=== PATIENT | male | born 1935 | race Caucasian/White ===

== ENCOUNTER 2022-07-02 10:42 | Emergency (ER) | payer OTHER, SELFPAY ==
[2022-07-02 10:50] VITALS: BP 156/82; PULSE 83; RESP 16; TEMP 36.8; O2SAT 95; BMI 26.5
--- NOTE | 2022-07-02 11:01 | ED_ITS ---
HPI - Extremity Injury (Lower) General Time Seen by Provider: 11:03 Date Seen: 07/02/22 Chief Complaint: Extremity Pain/Injury, Lower Stated Complaint: Leg pain/Muscle spasm Time Seen by Provider: 07/02/22 10:55 Source: patient, RN notes reviewed and old records reviewed Mode of arrival: ambulatory Limitations: no limitations History of Present Illness HPI Narrative: Moises is in the very pleasant 86-year-old gentleman having just been recently started on antihypertensive medicines in the past month who comes to the emergency room at the urging of the [facility] triage for evaluation regarding a possible DVT. Patient notes the onset of right calf pain last night associated with some mild swelling of the ankle. He states that he has not had any injury that he can recall. He has been very active and has not had any reason to be in active over the past month. He himself has no history of DVT although he has a daughter with recurrent DVT. Patient denies any recent back pain. Patient notes that he had to stay up last night and walking made his calf feel better. He describes waning and waxing pain and almost a spasm like quality to this discomfort. He has not had this happen to him in the past. I do ask him if he was experiencing spasm to the extent that his toe would point to the floor but he denies this. No recent fever chills or illness. Related Data Home Medications Medication Instructions Recorded Confirmed amlodipine 5 mg tablet 5 mg PO DAILY 07/02/22 07/02/22 losartan 50 mg tablet 50 mg PO DAILY 07/02/22 07/02/22 Allergies Allergy/AdvReac Type Severity Reaction Status Date / Time No Known Drug Allergies Allergy Verified 07/02/22 10:57 Review of Systems Status of ROS: Reports: 6 or more systems reviewed and unremarkable except as noted in History and below Narrative: Patient denies chest pain, shortness of breath, cough. Patient denies any abdominal pain, back pain. No recent falls or injury. [facility] Social History Smoking Status: Smoker, status unknown Non-prescribed substance use: denies use Exam Narrative: Exam Narrative: Patient is a very pleasant well-spoken gentleman. He is somewhat hard of hearing. Nontoxic in appearance. Heart with regular rate and rhythm and lungs are clear to auscultation in lung noyola. Moving all extremities without difficulty. He has no pain with palpation in the right calf. No significant difference in size in the calves. He does have some slight tenderness around the right ankle medial greater than lateral. Tenderness noted over the Achilles insertion which is very mild. Flexion extension fully intact. No obvious erythema. Skin changes consistent with some venous stasis. Const: Vital Signs, click to edit/add: Vital Signs - 24 hr 07/02/22 10:50 07/02/22 13:38 Temperature 98.3 F 98.3 F Pulse Rate [Right Pulse Oximeter] 83 83 Respiratory Rate 16 16 Blood Pressure [Ri ght Upper Arm] 156/82 H 156/82 H Pulse Oximetry 95 Oxygen Delivery Me thod Room Air Documenting provider has reviewed patient's vital signs: yes Course Course Hospital Course: When patient was started on his 2 medications for blood pressure he followed up 10 days ago and with received a call and was told that they were only going to continue 1 of the medications to be on the safe side. Family does not know what this means. They were unable to answer the question if this was an electrolyte or a kidney abnormality that may have showed up on the results. We will try to obtain recent records. Patient will have ultrasound of the right lower extremity as well as a chemistry panel plus magnesium. Vital Signs Vital signs: Initial Vital Signs Temperature 98.3 F 07/02/22 10:50 Temperature Source Temporal Artery Scan 07/02/22 10:50 Pulse Rate 83 07/02/22 10:50 Respiratory Rate 16 07/02/22 10:50 Blood Pressure 156/82 H 07/02/22 10:50 Blood Pressure Mean 106 07/02/22 10:50 Blood Pressure Position Sitting 07/02/22 10:50 Pulse Oximetry 95 07/02/22 10:50 Oxygen Delivery Method 07/02/22 10:50 Vital Signs Temperature 98.3 F 07/02/22 10:50 Pulse Rate 83 07/02/22 10:50 Respiratory Rate 16 07/02/22 10:50 Blood Pressure 156/82 H 07/02/22 10:50 Pulse Oximetry 95 07/02/22 10:50 Oxygen Delivery Method 07/02/22 10:50 Temperature 98.3 F 07/02/22 13:38 Pulse Rate 83 07/02/22 13:38 Respiratory Rate 16 07/02/22 13:38 Blood Pressure 156/82 H 07/02/22 13:38 Pulse Oximetry 95 07/02/22 10:50 Oxygen Delivery Method 07/02/22 10:50 MDM - Extremity Injury (Lower) MDM Narrative Medical decision making narrative: 1. Right leg pain-no evidence of DVT or lectured I abnormality leading to spasms. Patient is noted to have some slight edema on that side and an ultrasound that shows dilated vessel area around of valve popliteal fossa area. This may be leading to some venous stasis. But fortunately no evidence it is of clot. Recommend Tylenol or ibuprofen as needed for discomfort. Recommend elevating legs a few times a day. Follow-up with primary MD for ongoing symptoms. Magnesium, potassium and creatinine within normal limits. 2. Disposition-home with daughter. Return to the ER as needed. Medical Records Attestation: I reviewed the patient's medical records. Lab Data Attestation: I reviewed the patient's lab results. Labs: Lab Results 07/02/22 Range/Units 12:55 Sodium 139 (135-149) mmol/L Potassium 4.6 (3.6-5.1) mmol/L Chloride 100 (96-114) mmol/L Carbon Dioxide 30 (20-32) mmol/L BUN 16 (7-30) mg/dL Creatinine 1.0 (0.5-1.5) mg/dL Estimated Creat Clear 58.57 Estimated GFR 74 ml/min Glucose 111 (60-115) mg/dL Calcium 9.1 (8.4-10.6) mg/dL Magnesium 2.2 (1.5-2.6) mg/dL Imaging Data Venous US: Attestation: I have reviewed the pertinent imaging results. Radiologist's impression: Sonographic imaging demonstrates the visualized right common femoral, deep femoral, femoral, popliteal, posterior tibial, peroneal and greater saphenous and the contralateral left common femoral veins to be fully compressible with normal color Doppler blood flow. No Mills`s cyst is visualized. IMPRESSION: No evidence of a right lower extremity DVT. Discharge Plan Discharge Clinical Impression: Right calf pain Patient Disposition: Home, Self-Care Condition: Unchanged Additional Instructions: Tylenol or ibuprofen may be used for calf discomfort. At this time there is no evidence of an electrolyte imbalance or DVT (blood clot). Follow-up with your primary MD for ongoing problems. Prescriptions: No Action amlodipine 5 mg tablet 5 mg PO DAILY Label Comments: TAKE ONE TABLET BY MOUTH EVERY DAY losartan 50 mg tablet 50 mg PO DAILY Label Comments: TAKE ONE TABLET BY MOUTH EVERY DAY Stand Alone Forms: Agency [employer] Info Instructions
--- NOTE | 2022-07-02 11:35 | CRLHL7_ITS ---
For Patients: As a result of the Century Cures Act, medical imaging exams and procedure reports are released immediately into your electronic medical record. You may view this report before your referring provider. If you have questions, please contact your health care provider. INDICATION: Right calf pain. TECHNIQUE: Ultrasound venous duplex lower right extremity. Compression venous exam was performed using junior-scale, color Doppler, and spectral Doppler imaging. COMPARISON: None. FINDINGS: Sonographic imaging demonstrates the visualized right common femoral, deep femoral, femoral, popliteal, posterior tibial, peroneal and greater saphenous and the contralateral left common femoral veins to be fully compressible with normal color Doppler blood flow. No Mills`s cyst is visualized. IMPRESSION: No evidence of a right lower extremity DVT. Dictated by Johnson Mccauley MD @ 07/02/2022 1:38:42 PM (Electronically Signed)
[2022-07-02 13:17] LABS: Chloride* 100 mmol/L (96-114); Potassium* 4.6 mmol/L (3.6-5.1); Sodium* 139 mmol/L (135-149)
[2022-07-02 13:20] LABS: Blood Urea Nitrogen* 16 mg/dL (7-30); Carbon Dioxide* 30 mmol/L (20-32); Est. Creatinine Clearance* 58.57; Estimated Glomerular Filt Rate 74 ml/min; Glucose* 111 mg/dL (60-115)
[2022-07-02 13:21] LABS: Calcium* 9.1 mg/dL (8.4-10.6); Magnesium* 2.2 mg/dL (1.5-2.6)
[2022-07-02 13:38] VITALS: BP 156/82; PULSE 83; RESP 16; TEMP 36.8
== END 2022-07-02 13:39 | disposition home or self-care (01) ==
PROVIDERS: Emergency Provider Family Medicine; PCP Surgery
DX: M79.661 Pain in right lower leg (principal)
CPT/HCPCS: 36415; 80048; 83735; 93971; 99283; 99284